=== PATIENT | female | born 1995 | race African-American/Black ===

== ENCOUNTER → 2017-10-25 | Outpatient (CLI) | payer OTHER ==
[~2017-10-25] MED LIST: ISOVUE-370 76% 100ML VIAL (Q9967) As Ordered
== END ==
LOC: M RAD 14:13
DX: R22.1 Localized swelling, mass and lump, neck (principal)
CPT/HCPCS: Q9967

== ENCOUNTER 2018-07-11 14:20 | Emergency (ER) | payer OTHER ==
[~2018-07-11] VITALS: Ht 160 cm; Wt 42.7 kg
[2018-07-11 15:39] LABS: BASO % 0.8 % (0.0-1.0); EOS # 0.1 10^3/uL (0.0-0.50); EOS % 2.1 % (0.0-3.0); HEMATOCRIT 36.4 % (36.0-47.0); HEMOGLOBIN 12.2 g/dl (12.0-15.5); LYMPH # 1.7 10^3/uL (1.5-6.5); MEAN CORPUSCULAR HEMOGLOBIN 29.3 pg (27.0-33.0); MEAN CORPUSCULAR HGB CONC 33.5 g/dl (32.0-36.5); MEAN CORPUSCULAR VOLUME 87.5 fl (80.0-96.0); MONO # 0.4 10^3/uL (0.0-0.8); MONO % 10.9 % (0.0-5.0); NEUTROPHILS # 1.6 10^3/uL (1.8-7.7); NEUTROPHILS % 42.2 % (36.0-66.0); PLATELET COUNT, AUTOMATED 283 10^3/uL (150-450); RED BLOOD COUNT 4.16 10^6/uL (4.00-5.40); WHITE BLOOD COUNT 3.9 10^3/uL (4.0-10.0)
[2018-07-11 16:14] LABS: HCG, SERUM QUALITATIVE NEGATIVE (NEGATIVE)
[2018-07-11 16:27] LABS: ALBUMIN 3.6 GM/DL (3.2-5.2); ALT/SGPT 13 U/L (12-78); AMYLASE 58 U/L (25-115); BILIRUBIN,DIRECT 0.1 MG/DL (0.0-0.2); BILIRUBIN,TOTAL 0.3 MG/DL (0.2-1.0); BLOOD UREA NITROGEN 6 MG/DL (7-18); CALCIUM LEVEL 8.7 MG/DL (8.5-10.1); CARBON DIOXIDE LEVEL 24 MEQ/L (21-32); CHLORIDE LEVEL 109 MEQ/L (98-107); CREATININE FOR GFR 0.85 MG/DL (0.55-1.30); GLOMERULAR FILTRATION RATE > 60.0 (>60); GLUCOSE, FASTING 115 MG/DL (70-100); LIPASE 75 U/L (73-393); POTASSIUM SERUM 3.9 MEQ/L (3.5-5.1); SODIUM LEVEL 141 MEQ/L (136-145); TOTAL PROTEIN 6.8 GM/DL (6.4-8.2)
[2018-07-11] MEDS ORDERED: PANTOPRAZOLE 40MG TAB (PROTONIX) PO ONE (17:30)
[2018-07-11] MEDS ORDERED: ONDANSETRON 4 MG ORAL DISINTEGRATING TAB (Q0162 PER 1MG) PO ONE (17:30)
[2018-07-11] MEDS ORDERED: GI COCKTAIL 50ML BTL(HYOSCYAMINE/MAALOX/LIDOCAINE VISCOUS)(1:3:1) PO ONE (17:30)
--- NOTE | 2018-07-11 17:45 | REP ---
Clinical: Acute chest pain . Comparison: None . Technique: PA and lateral. Findings: The mediastinum and cardiac silhouette are normal. The lung spears are clear and without acute consolidation, effusion, or pneumothorax. The skeletal structures are intact and normal. Impression: 1. No acute cardiopulmonary process. Electronically Signed by Romero Moses MD 07/11/2018 05:35 P
[2018-07-11] MEDS ORDERED: IBUP-1022 PO (18:25)
[2018-07-11] MEDS ORDERED: RANI15TA PO (18:25)
[2018-07-11 18:40] VITALS: BP 108/67
--- NOTE | 2018-07-12 21:13 | ECGEPIP ---
Stationary ECG Study [facility] - ED Test Date: 2018-07-11 Pat Name: NATALIE EWING Department: Room: - Gender: F Network Technician: adam : 1995 Requested By: MYRNA Schaeffer PA-C Order Number: [id number] Reading MD: Alejo Contreras Measurements Intervals [place] Rate: 73 P: 64 [place]: 141 QRS: 63 QRSD: 92 T: 25 QT: 367 QTc: 405 Interpretive Statements SINUS RHYTHM NONSPECIFIC T-WAVE ABNORMALITY NO PRIORS FOR COMPARISON Electronically Signed On 07-12-2018 21:12:41 EST by Alejo Contreras
== END 2018-07-11 18:50 | disposition home or self-care (01) ==
LOC: M ED 14:20
DX: K21.9 Gastro-esophageal reflux disease without esophagitis (principal); R07.89 Other chest pain; Z87.442 Personal history of urinary calculi; Z72.0 Tobacco use
CPT/HCPCS: 71046; 80048; 80076; 81001; 82150; 83690; 84703; 85025; 93005; 99284; Q0162

== ENCOUNTER 2018-09-26 07:10 | Emergency (ER) | payer OTHER ==
[~2018-09-26] VITALS: Ht 157.5 cm; Wt 44.5 kg
[~2018-09-26 07:10] MED LIST changes: +IBUP-1022 PO; -ISOVUE-370 76% 100ML VIAL (Q9967) As Ordered; +RANI15TA PO
[2018-09-26 07:11] VITALS: BP 122/76
[2018-09-26] MEDS ORDERED: ALL10TAB28 PO (07:59)
[2018-09-26] MEDS ORDERED: FLON1SPR NARES (07:59)
[2018-09-29] MEDS ORDERED: AMOX500C PO (07:55)
== END 2018-09-26 08:15 | disposition home or self-care (01) ==
LOC: M ED 07:10
DX: J30.89 Other allergic rhinitis (principal); Z79.899 Other long term (current) drug therapy; F17.210 Nicotine dependence, cigarettes, uncomplicated